=== PATIENT | female | born 1955 | race African-American/Black ===

== ENCOUNTER 2019-08-06 21:35 | Emergency (ER) | payer MEDICARE, BC, MEDICAID ==
[~2019-08-06] VITALS: Ht 172.7 cm; Wt 80.0 kg
[~2019-08-06 21:35] MED LIST: AMLODIPINE; ATENOLOL; DILAUDID IM; KEFLEX; VICODIN; [UNRECOGNIZED DRUG - OTHER]
[2019-08-06] MEDS ORDERED: SODIUM CHLORIDE 0.9% 1,000 ML IV ONE (23:01)
[2019-08-06] MEDS ORDERED: MORPHINE SULFATE 4 MG/ML CPJ (NOT FOR IM USE) IV STA (23:01)
[2019-08-06] MEDS ORDERED: ONDANSETRON HCL 4MG/2ML INJ IV STA (23:01)
[2019-08-06 23:55] LABS: HEMATOCRIT. 38.7 % (36.0-48.0); HEMOGLOBIN. 12.3 g/dL (12.0-16.0); MEAN CORPUSCULAR HEMOGLOBIN 26.4 pg (28.0-32.0); MEAN CORPUSCULAR VOLUME 82.9 fL (81.0-99.0); MEAN PLATELET VOLUME 7.8 fl (7.4-10.4); PLATELET 222 x1000/uL (130-400); RED BLOOD CELL COUNT 4.67 mill/uL (4.2-5.4); RED CELL DISTRIBUTION WIDTH 16.3 % (11.6-14.6)
[2019-08-06 23:57] LABS: CHLORIDE 102 mEq/L (98-107)
[2019-08-07] MEDS ORDERED: ACETAMINOPHEN 500MG TABLET PO ONE (01:15)
[2019-08-07] MEDS ORDERED: MORPHINE SULFATE 4 MG/ML CPJ (NOT FOR IM USE) IV ONE (03:00)
[2019-08-07 03:30] LABS: PLATELET ESTIMATE NORMAL
[2019-08-07 03:37] VITALS: BP 168/92
== END 2019-08-07 03:40 | disposition home or self-care (01) ==
LOC: ER 21:35
DX: C78.7 Secondary malignant neoplasm of liver and intrahepatic bile duct (principal); R51 Headache; I10 Essential (primary) hypertension; I25.2 Old myocardial infarction; F17.200 Nicotine dependence, unspecified, uncomplicated; Z92.21 Personal history of antineoplastic chemotherapy
CPT/HCPCS: 36415; 70450; 80053; 85025; 96361; 96374; 96375; 96376; 99284; J2270; J2405; J7030